=== PATIENT | male | born 1990 | race Native Hawaiian/Other Pacific Islander ===

== ENCOUNTER 2019-12-09 16:48 | Emergency (ER) | payer OTHER | END 2019-12-09 18:11 | disposition home or self-care (01) | LOC: M ED 16:48 | DX: Z11.59 Encounter for screening for other viral diseases (principal); J02.9 Acute pharyngitis, unspecified; F17.200 Nicotine dependence, unspecified, uncomplicated | CPT/HCPCS: 99282; U0002 ==